=== PATIENT | female | born 1945 | race African-American/Black ===

== ENCOUNTER 2025-06-02 13:55 | Emergency (ER) | payer BC, MEDICARE ==
[~2025-06-02] VITALS: Ht 170.2 cm; Wt 60.0 kg
[~2025-06-02 13:55] MED LIST: ASPI-1406 PO; DIAZ5TAB PO; ISOS60TA76 PO
[2025-06-02 13:59] VITALS: TEMP 36.8; O2SAT 99
[2025-06-02 15:21] LABS: BASOPHILS % 0.5 % (0.0-2.0); EOSINOPHILS % 3.0 % (0.0-5.0); HEMATOCRIT. 29.8 % (36.0-48.0); HEMOGLOBIN. 10.0 g/dL (12.0-16.0); LYMPHOCYTES % 34.8 % (20.0-50.0); MEAN PLATELET VOLUME 8.5 fl (7.4-10.4); MONOCYTES % 13.3 % (2.0-8.0); NEUTROPHILS % 48.4 % (40.0-76.0); PLATELET 187 x1000/uL (130-400); RED BLOOD CELL COUNT 3.18 mill/uL (4.2-5.4); RED CELL DISTRIBUTION WIDTH 14.4 % (11.6-14.6)
[2025-06-02 15:28] LABS: CREATININE 0.8 mg/dL (0.6-1.0)
[2025-06-02 15:29] LABS: TROPONIN I HIGH SENSITIVITY < 4 ng/L (3.0-34); UREA NITROGEN BLOOD 19 mg/dL (9-23)
[2025-06-02 16:24] VITALS: BP 104/64; PULSE 70; RESP 15; O2SAT 98
[2025-06-02] MEDS ORDERED: IBUP-2028 MT (17:18)
== END 2025-06-02 17:21 | disposition home or self-care (01) ==
LOC: ER 13:55 → CANBEDREQ 16:43 → ER 17:21
DX: R07.9 Chest pain, unspecified (principal); F41.9 Anxiety disorder, unspecified; I11.0 Hypertensive heart disease with heart failure; I50.9 Heart failure, unspecified; Z79.899 Other long term (current) drug therapy; Z88.5 Allergy status to narcotic agent
CPT/HCPCS: 36415; 71045; 80048; 83880; 84484; 85025; 93005; 99285